=== PATIENT | male | born 1995 | race Caucasian/White ===

== ENCOUNTER 2017-03-18 20:14 | Emergency (ER) | payer OTHER ==
[2017-03-18 20:34] VITALS: TEMP 98.2
--- NOTE | 2017-03-18 22:16 | EDPHY ---
H & P Stated Complaint: sob anxious feels like l lung hard to breathe Time Seen by Provider: 03/18/17 22:01 HPI/ROS: HPI The patient presents with chest pain and shortness of breath which began tonight. He noticed while he was lying back in bed he had a "blocked feeling of his left lung "which was improved when he sat forward. He is associated with a tight chest. He feels mildly short of breath. He is concerned he may have a collapsed lung. He reports for the last 2 nights he has been drinking alcohol heavily and smoking marijuana and is worried that he may have inadvertently injured himself. He does not have a cough, fever. He wonders if he could have an anxiety attack also.. REVIEW OF SYSTEMS Constitutional: No fever, no chills. Eyes: No discharge. ENT: No sore throat. Cardiovascular: See HPI Respiratory: No cough, positive for shortness of breath. Gastrointestinal: No abdominal pain, no vomiting. Genitourinary: No hematuria. Musculoskeletal: No back pain. Skin: No rashes. Neurological: No headache. PMHx: Healthy Soc Hx: Alcohol and marijuana use PHYSICAL General Appearance: Alert, no distress Eyes: Pupils equal and round no pallor or injection ENT, Mouth: Mucous membranes moist Respiratory: There are no retractions, lungs are clear to auscultation Cardiovascular: Regular rate and rhythm Gastrointestinal: Abdomen is soft and non-tender, no masses, bowel sounds normal Neurological: A&O, moves all extremities Skin: Warm and dry, no rashes Musculoskeletal: Neck is supple non tender Extremities: symmetrical, full range of motion Psychiatric: Patient is oriented X 3, there is no agitation Source: Patient Exam Limitations: No limitations - Personal History Current Tetanus/Diphtheria Vaccine: Yes Current Tetanus Diphtheria and Acellular Pertussis (TDAP): Yes - Medical/Surgical History Hx Asthma: No Hx Chronic Respiratory Disease: No Hx Diabetes: No Hx Cardiac Disease: No Hx Renal Disease: No Hx Cirrhosis: No Hx Alcoholism: No Hx HIV/AIDS: No Hx Splenectomy or Spleen Trauma: No - Social History Smoking Status: Current some day smoker Constitutional: Initial Vital Signs Temperature (C) 36.8 C 03/18/17 20:29 Heart Rate 86 03/18/17 20:29 Respiratory Rate 18 03/18/17 20:29 Blood Pressure 136/78 H 03/18/17 20:29 O2 Sat (%) 99 03/18/17 20:29 O2 Delivery Mode Room Air Allergies/Adverse Reactions: No Known Allergies Allergy (Unverified 03/18/17 20:28) Home Medications: Medication Instructions Recorded NK [No Known Home Meds] 03/18/17 Medical Decision Making - Diagnostics Imaging Results: Imaging Impressions Chest X-Ray 03/18/17 22:13 Impression: Suspect mild airways disease. Imaging: I viewed and interpreted images myself Differential Diagnosis: 21-year-old healthy male presents with several hours of chest tightness and shortness of breath while lying flat. On exam, vital signs are normal, lungs are clear bilaterally, I do not appreciate any pericardial friction rub. Differential diagnosis includes pericarditis, pneumothorax, pleural effusion, pneumonia. Plan for chest x-ray and EKG. Chest x-ray and EKG performed and are unremarkable. There may be mild underlying bronchitis. I will give him an albuterol inhaler for treatment. I feel he is safe to return home and I have answered all his questions. He will be discharged in good condition. - Data Points Medications Given: Discontinued Medications Albuterol Sulfate (Proventil Inh Prepack) 1 mdi LEIF CALVIN ONE Stop: 03/18/17 22:51 Last Admin: 03/18/17 23:19 Dose: 1 mdi Departure - Departure Disposition: Home, Routine, Self-Care Clinical Impression: Shortness of breath, Chest tightness Condition: Good Instructions: Albuterol (By breathing), Dyspnea (ED) Additional Instructions: Please return to the emergency department if your worse in any way. You can use the inhaler as needed for any trouble you may have breathing. Referrals: TIM GUZMAN [Other] - As per Instructions
--- NOTE | 2017-03-18 22:22 | CPEKG ---
Heart Rate: 63 RR Interval: 952 P-R Interval: 168 QRSD Interval: 94 QT Interval: 400 QTC Interval: 410 P [place]: 54 QRS [place]: 77 T Wave [place]: 40 EKG Severity - ABNORMAL ECG - EKG Impression: SINUS RHYTHM Electronically Signed By: Liliane Apodaca 19-Mar-2017 05:56:29
[2017-03-18] MEDS ORDERED: ALBUTEROL INH PREPACK MDI TAKEHOME ONE (22:50)
[2017-03-18 23:21] VITALS: BP 133/89; PULSE 80; RESP 16; O2SAT 98
== END 2017-03-18 23:21 | disposition home or self-care (01) ==
DX: R06.02 Shortness of breath (principal); R07.89 Other chest pain; F17.200 Nicotine dependence, unspecified, uncomplicated